=== PATIENT | female | born 1970 | race Caucasian/White ===

== ENCOUNTER 2022-02-19 11:26 | Observation (INO) ==
[2022-02-19] MEDS ORDERED: Furosemide 40 MG/4 ML VIAL IVP ONE (11:51)
[2022-02-19 12:07] LABS: Basophils # 0.1 K/mcL (0.0-0.2); Basophils % 0.6 %; Eosinophils # 0.2 K/mcL (0.0-0.6); Eosinophils % 2.4 %; Hematocrit 33.1 % (35.3-44.9); Hemoglobin 10.8 g/dL (11.5-15.4); Immature Granulocytes % 0.2 % (0-4); Lymphocytes % 43.5 %; Mean Corpuscular HGB Conc 32.6 g/dL (31.6-35.5); Mean Platelet Volume 8.6 fL (9.4-12.4); Monocytes # 0.7 K/mcL (0.0-1.3); Monocytes % 7.5 %; Neutrophils # 4.3 K/mcL (1.6-8.9); Platelet Count 345 K/mcL (140-400); Red Blood Count 3.72 M/mcL (3.82-4.97); Red Cell Distribution Width 14.4 % (11.5-14.5); Segmented Neutrophils % 45.8 %; White Blood Count 9.3 K/mcL (4.3-11.1)
[2022-02-19 12:16] LABS: Prothrombin Time 10.9 Seconds (9.4-12.1)
[2022-02-19 12:24] LABS: Alanine Aminotransferase 87 Units/L (7-52); Albumin 3.6 g/dL (3.5-5.7); Albumin/Globulin Ratio 1.3 (1.1-2.2); Alkaline Phosphatase 260 Units/L (34-104); Aspartate Amino Transferase 38 Units/L (13-39); BUN/Creatinine Ratio 17 (6-26); Bilirubin,Total 0.5 mg/dL (0.3-1.0); Blood Urea Nitrogen 14 mg/dL (6-20); Calcium 8.5 mg/dL (8.6-10.3); Carbon Dioxide 25 mEq/L (23-29); Chloride 102 mEq/L (98-107); Globulin 2.7 g/dL (2.4-3.5); Glucose 411 mg/dL (70-105); Osmolality,Calculated 298 (280-300); Potassium 4.4 mEq/L (3.5-5.1); Sodium 135 mEq/L (136-145); Total Protein 6.3 g/dL (6.4-8.9); eGFR For African Americans > 60 (> 60); eGFR For Non-African Americans > 60 (> 60)
[2022-02-19] MEDS ORDERED: Isovue-370 500 ML BOTTLE IVP ONE (12:24)
[2022-02-19 12:28] LABS: Platelet Estimate Normal (Normal); Troponin I < 0.03 ng/mL (< 0.04)
[2022-02-19] MEDS ORDERED: levoFLOXacin 750 MG/150 ML 750 MG/150 ML BAG IVPB ONE (14:43)
[2022-02-19] MEDS ORDERED: *HR* Dextrose 50 % in Water (Syg) 50 ML SYRINGE IVP PRN (15:36)
[2022-02-19] MEDS ORDERED: Naloxone 0.4 MG/ML INJ IVP PRN (15:36)
[2022-02-19] MEDS ORDERED: Dextrose 4 GM Chewable Tablets PO PRN ×2 (15:36)
[2022-02-19] MEDS ORDERED: D5% in Water 1,000 ML IVC PRN (15:36)
[2022-02-19] MEDS ORDERED: Nitroglycerin 0.4 MG TAB.SUBL SL PRN (15:37)
[2022-02-19] MEDS ORDERED: Ondansetron ODT 4 MG TAB.RAPDIS PO PRN (15:37)
[2022-02-19] MEDS ORDERED: Insulin DETEMIR 100 UNIT/ML X5UNITS SUBQ SCH (21:00)
[2022-02-19] MEDS ORDERED: Insulin LISPRO 300 UNITS/3 ML VIAL SUBQ SCH (21:00)
[2022-02-19] MEDS: Insulin LISPRO 300 UNITS/3 ML VIAL SUBQ SCH (21:39)
[2022-02-19] MEDS ORDERED: Insulin DETEMIR 100 UNIT/ML per UNIT SUBQ ONE (22:15)
[2022-02-19] MEDS ORDERED: Insulin LISPRO 300 UNITS/3 ML VIAL SUBQ ONE (22:16)
[2022-02-20] MEDS ORDERED: *HR* Enoxaparin 40 MG/0.4 ML SYRINGE SQ SCH (06:00)
[2022-02-20 07:41] VITALS: BP 133/79; PULSE 60; RESP 18; TEMP 97.8; O2SAT 96
[2022-02-20 08:18] LABS: Basophils # 0.1 K/mcL (0.0-0.2); Basophils % 0.5 %; Eosinophils # 0.3 K/mcL (0.0-0.6); Eosinophils % 2.7 %; Hemoglobin 10.9 g/dL (11.5-15.4); Immature Granulocytes % 0.4 % (0-4); Lymphocytes # 4.2 K/mcL (0.6-4.6); Lymphocytes % 38.9 %; Mean Corpuscular Hemoglobin 28.5 pg (28.0-33.3); Mean Corpuscular Volume 86.4 fL (83.0-100.0); Mean Platelet Volume 8.9 fL (9.4-12.4); Monocytes # 0.9 K/mcL (0.0-1.3); Monocytes % 8.4 %; Neutrophils # 5.3 K/mcL (1.6-8.9); Platelet Count 371 K/mcL (140-400); Red Blood Count 3.82 M/mcL (3.82-4.97); Red Cell Distribution Width 14.2 % (11.5-14.5); Segmented Neutrophils % 49.1 %; White Blood Count 10.8 K/mcL (4.3-11.1)
[2022-02-20 08:40] LABS: BUN/Creatinine Ratio 27 (6-26); Blood Urea Nitrogen 16 mg/dL (6-20); Calcium 8.6 mg/dL (8.6-10.3); Carbon Dioxide 26 mEq/L (23-29); Chloride 102 mEq/L (98-107); Glucose 239 mg/dL (70-105); Osmolality,Calculated 291 (280-300); Potassium 3.6 mEq/L (3.5-5.1); Sodium 136 mEq/L (136-145); eGFR For African Americans > 60 (> 60); eGFR For Non-African Americans > 60 (> 60)
[2022-02-20] MEDS: Insulin LISPRO 300 UNITS/3 ML VIAL SUBQ SCH (08:50)
[2022-02-20] MEDS ORDERED: levoFLOXacin 750 MG TABLET PO SCH (09:00)
[2022-02-20] MEDS ORDERED: FLUoxetine HCl 10 MG CAPSULE PO SCH (09:00)
[2022-02-20] MEDS ORDERED: Venlafaxine XR (24 HR) 75 MG CAP.ER.24H PO SCH (09:00)
[2022-02-20] MEDS ORDERED: Gabapentin 300 MG CAPSULE PO SCH ×2 (09:00)
[2022-02-20] MEDS ORDERED: Aspirin Enteric Coated 81 MG Tablet PO SCH (09:00)
[2022-02-20] MEDS ORDERED: Furosemide 20 MG TABLET PO SCH (09:00)
== END 2022-02-20 10:32 | disposition home or self-care (01) ==
LOC: EMEROOPIK 11:26 → INPPIK 11:26
PROVIDERS: ADMIT Internal Medicine; ATTEND Internal Medicine